=== PATIENT | female | born 2000 | race Hispanic/Latino ===

== ENCOUNTER 2018-03-17 01:46 | Emergency (ER) | payer OTHER, SELFPAY ==
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
[2018-03-17] MEDS: HALOPERIDOL 5 MG/ML VIAL IM (02:07)
[2018-03-17] MEDS: LORazepam 2 MG/ML SYRINGE IM (02:07)
[2018-03-17] MEDS: diphenhydrAMINE 50 MG/ML VIAL IM (02:07)
[2018-03-17 03:20] VITALS: BP 103/64; PULSE 109; RESP 16; TEMP 36.9; O2SAT 98
--- NOTE | 2018-03-17 03:35 | PC.NURSE ---
Pt now lying down on mattress. Pt rouseable, now responding apropriately. Pt cooperated with vital signs, pt was naked but was assisted into a hospital gown. Pt asked apropriate questions, What happened? Is Karan ok? Is my mom ok? Pt reassurred. Pt C/O cold and given warm blankets. Door left open/ seclusion DC'd. Dr Monae notified of above.
--- NOTE | 2018-03-17 07:52 | PC.NURSE ---
Pt is know to staff and it is asked if pt wanted family called to come get her. She states Yes
--- NOTE | 2018-03-17 08:25 | PC.NURSE ---
Late entry: Pt has been 1:1 observation since arrival
--- NOTE | 2018-03-17 08:27 | PC.NURSE ---
Per Dr Mayorga, doesnt need violent restraints renewed as cooperative with care
--- NOTE | 2018-03-17 09:01 | PC.NURSE ---
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
[2018-03-17 09:46] VITALS: BP 104/69; PULSE 103; RESP 20; O2SAT 98
== END 2018-03-17 09:47 | disposition home or self-care (01) ==
PROVIDERS: Emergency Provider Emergency Medicine; Family Provider Family Medicine; PCP Family Medicine
DX: R41.82 Altered mental status, unspecified (principal); F19.90 Other psychoactive substance use, unspecified, uncomplicated
CPT/HCPCS: 96372; 99283; J1200; J1630; J2060

== ENCOUNTER → 2018-06-07 16:06 | Outpatient (CLI) | payer OTHER, SELFPAY ==
[2018-06-07 20:09] LABS: Urine N gonorrhoeae NOT DETECTED
[2018-06-07 20:18] LABS: Urine Chlamydia NOT DETECTED
== END ==
PROVIDERS: Family Provider Family Medicine; PCP Obstetrics & Gynecology; Visit Provider Obstetrics & Gynecology
DX: Z11.3 Encounter for screening for infections with a predominantly sexual mode of transmission (principal); Z11.8 Encounter for screening for other infectious and parasitic diseases
CPT/HCPCS: 87491; 87591

== ENCOUNTER 2019-01-06 01:02 | Emergency (ER) | payer OTHER, SELFPAY ==
[2019-01-06 01:12] VITALS: BP 119/82; PULSE 76; RESP 16; TEMP 37; O2SAT 99; BMI 26.5
--- NOTE | 2019-01-06 01:18 | ED_ITS ---
HPI - Female Genitourinary General Chief complaint: Urogenital-Female Stated complaint: pain after intercourse, has IUD Time Seen by Provider: 01/06/19 01:12 Source: patient Mode of arrival: ambulatory Limitations: no limitations History of Present Illness HPI Narrative: Otherwise healthy 18-year-old female here for evaluation of lower abdominal cramping and pelvic pain after having intercourse earlier this faheem murillo. She states she had an IUD placed earlier this year. Has not had any problems since then. States she was on the Depo prior to that still has not had a menstrual cycle in ?some time ?states that after having intercourse started having lower abdominal pain. No urinary symptoms. No bowel changes. States symptoms have improved somewhat since then. She was concerned that they IUD could have been displaced. Related Data Home Medications Medication Instructions Recorded Confirmed [TYLENOL COLD AND COU] #0 09/07/06 Previous Rx's Medication Instructions Recorded citalopram 20 mg tablet 30 mg PO QDAY #45 tab 03/07/18 Allergies Allergy/AdvReac Type Severity Reaction Status Date / Time Penicillins [PENICILLINS] Allergy Unknown Verified 03/17/18 09:42 Review of Systems Constitutional Denies fever(s) Cardiovascular Denies chest pain and Denies dyspnea Respiratory Denies dyspnea Gastrointestinal Gastrointestinal: Reports abdominal pain, Denies change in stool character, Reports cramping, Denies nausea and Denies vomiting Genitourinary Denies dysuria and Reports pelvic pain Musculoskeletal Denies myalgias and Denies arthralgias Integumentary/Breasts Denies rash Neurologic Denies behavioral changes Psychiatric Denies behavioral changes Hematologic/Lymphatic Denies easy bleeding and Denies easy bruising Allergic/Immunologic Denies urticaria [facility] Medical History Patient denies medical problems (Acute) Social History Smoking Status: Current some day smoker Social History Smoking Status: Current some day smoker Exam Initial Vital Signs Initial Vital Signs: Vital Signs Temperature 98.6 F 01/06/19 01:12 Pulse Rate 76 01/06/19 01:12 Respiratory Rate 16 01/06/19 01:12 Blood Pressure 119/82 01/06/19 01:12 Pulse Oximetry 99 01/06/19 01:12 Const General: cooperative, comfortable, well developed, well groomed and No acute distress Orientation: alert, awake and oriented x3 HENMT Head: normal to inspection and normocephalic Resp Effort & Inspection: normal respiratory effort Auscultation: clear to auscultation bilaterally Cardio Rate: regular rate Rhythm: regular rhythm Pulses: radial pulses present GI Inspection: non-distended Palpation: soft, No firm and tender Other: No cervical motion tenderness, IUD string seen protruding from the cervical os, no adnexal tenderness, nursing was at bedside for the exam Skin Lesions: no lesions Rashes: no rashes Neuro General: alert, awake and oriented x3 Extrem General: normal to inspection and capillary refill normal Psych Appearance: grossly normal and well kempt Course Vital Signs - 8 hr 01/06/19 01:12 01/06/19 01:44 Temperature 98.6 F Pulse Rate 76 73 Respiratory Rate 16 16 Blood Pressure 119/82 Blood Pressure [Left Arm] 105/73 Pulse Oximetry 99 98 MDM - Female Genitourinary Lab Data Point of Care Testing Test Results Negative MDM Narrative Medical decision making narrative: Benign abdominal exam, IUD strings seen coming from the cervical os, doubt the IUD is been displaced, test negative, will hold on further workup for now, patient was given return precautions and follow-up instructions. She expressed understanding and agreement with plan Discharge Plan Departure Patient Disposition: Home Clinical Impression: Abdominal pain Qualifiers: Abdominal location: lower abdomen, unspecified Qualified Code(s): R10.30 - Lower abdominal pain, unspecified Discharge Date/Time: 01/06/19 01:51 Interventions: ED Discharge Assessment Last Done: 01/06/19 01:51 Instructions: Acute Abdominal Pain Activity Restrictions/Additional Instructions: The IUD strings were visualized today it seems to be in the correct location. Recommend you take Tylenol or ibuprofen for any discomfort. Return to the emergency department for any new or worsening symptoms. Contact your primary doctor for follow-up. Prescriptions: No Action [TYLENOL COLD AND COU] Qty: 0 RF: 0 citalopram [Celexa] 20 mg tablet 30 mg PO QDAY Qty: 45 RF: 2 Referrals: Lisset Petit MD [Primary Care Provider] -
[2019-01-06 01:44] VITALS: BP 105/73; PULSE 73; RESP 16; O2SAT 98
--- NOTE | 2019-01-06 01:44 | PC.NURSE ---
Stand-by assist for pelvic exam. Pt tolerated well.
== END 2019-01-06 01:51 | disposition home or self-care (01) ==
PROVIDERS: Emergency Provider Emergency Medicine; Family Provider Family Medicine; PCP Obstetrics & Gynecology
DX: R10.30 Lower abdominal pain, unspecified (principal)
CPT/HCPCS: 81025; 99282; 99283

== ENCOUNTER 2019-06-23 19:09 | Emergency (ER) | payer OTHER, SELFPAY ==
[2019-06-23 19:11] VITALS: BP 142/93; PULSE 91; RESP 18; TEMP 36.6; O2SAT 100
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
[2019-06-23 19:38] LABS: Add Manual Diff / Slide Review NO; Basophils Absolute Auto 0 /uL (0-100); Basophils Percent Auto 0.3 % (0-2); Eosinophils Absolute Auto 0 /uL (0-450); Eosinophils Percent Auto 0.5 % (2-4); Hematocrit 45.4 % (36-46); Hemoglobin 15.8 g/dL (12.0-16.0); Lymphocytes Absolute Auto 1200 /uL (1100-4500); Lymphocytes Percent Auto 13.6 % (25-40); Mean Corpuscular HGB Conc 34.8 % (30-36); Mean Corpuscular Hemoglobin 30.2 PG (26-34); Mean Corpuscular Volume 86.9 fL (80-100); Monocytes Absolute Auto 800 /uL (0-900); Monocytes Percent Auto 9.1 % (3-14); Neutrophils Absolute Auto 6800 /uL (1500-7000); Neutrophils Percent Auto 76.5 % (50-75); Platelet Count 399 X10^3/uL (150-400); Red Blood Cell Count 5.22 X10^6/uL (4.0-5.2); Red Cell Distribution Width 14.1 % (11.6-14.8); White Blood Cell Count 8.9 X10^3/uL (4.5-11.0)
[2019-06-23 19:55] LABS: Acetaminophen < 10 ug/mL (10-30); Alanine Aminotransferase 18 IU/L (<35); Albumin Globulin Ratio 1.3 (1.0-2.8); Alkaline Phosphatase 98 U/L (38-126); Aspartate Aminotransferase 24 IU/L (14-36); BUN Creatinine Ratio 6.7 (6-22); Bilirubin Total 0.7 mg/dL (0.2-1.3); Blood Urea Nitrogen 4 mg/dL (7-17); Calcium 9.6 mg/dL (8.4-10.2); Carbon Dioxide 25 mmol/L (22-32); Chloride 101 mmol/L (98-107); Estimated Glomerular Filt Rate > 60.0 mL/min (>60); Ethanol (ETOH) < 10 mg/dL; Globulin 3.9 g/dL (1.7-4.1); Glucose 102 mg/dL (70-100); HEMOLYSIS < 15 (0-50); Potassium 3.2 mmol/L (3.4-5.1); Salicylate < 1.0 mg/dL (<20); Sodium 138 mmol/L (137-145); Total Protein 8.9 g/dL (6.3-8.2)
[2019-06-23 20:36] LABS: Thyroid Stimulating Hormone 1.58 uIU/mL (0.47-4.68)
[2019-06-23 21:04] LABS: UR Morphine/Opiate cutoff 300 Negative (Negative); Ur Creatinine Normal (Normal); Ur Specific Gravity Normal (Normal); Urine Amphetamines Negative (Negative); Urine Barbiturates Negative (Negative); Urine Benzodiazepines Negative (Negative); Urine Cocaine Negative (Negative); Urine MDMA Negative (Negative); Urine Methadone Negative (Negative); Urine Methamphetamines Negative (Negative); Urine Oxycodone Negative (Negative); Urine Phencyclidine Negative (Negative); Urine Tetrahydrocannabinol Positive (Negative); Urine Tricyclic Antidepressant Negative (Negative); Urine pH Normal (Normal)
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
[2019-06-23 21:06] LABS: Bacteria Urine None Seen; RBC Urine None Seen (0-5/HPF); WBC Urine None Seen (0-5/HPF)
[2019-06-23 21:22] LABS: Culture Indicated Urine Cult Not Indicated; Squamous Epithelial Cell Urine 0-1 /HPF (0-5/HPF)
[2019-06-23 21:52] VITALS: BP 133/88; PULSE 82; RESP 14; TEMP 36.5; O2SAT 98
== END 2019-06-23 21:56 | disposition home or self-care (01) ==
PROVIDERS: Emergency Provider Emergency Medicine; PCP Nurse Practitioner Family
DX: R41.0 Disorientation, unspecified (principal); F12.929 Cannabis use, unspecified with intoxication, unspecified
CPT/HCPCS: 36415; 80053; 80305; 80320; 80329; 81003; 81015; 81025; 84443; 85025; 99282; 99283; G0480

== ENCOUNTER 2020-04-17 11:40 | Emergency (ER) | payer OTHER, SELFPAY ==
[2020-04-17 11:45] VITALS: BP 142/76; PULSE 88; RESP 16; TEMP 37.1; O2SAT 95; BMI 25.7
--- NOTE | 2020-04-17 12:41 | DI.RAD.S_ITS ---
PROCEDURE: XR FINGER RT MIN 2V INDICATIONS: injury with kniferight 5th digit TECHNIQUE: AP hand, 2 views of the 5th finger(s) acquired. COMPARISON: None. FINDINGS: Bones: No fractures or dislocations. No suspicious bony lesions. Soft tissues: No suspicious soft tissue calcifications. No radiopaque foreign bodies are seen. IMPRESSION: No acute bony abnormality is seen. No radiopaque foreign bodies are seen. Dictated by: Hugh Grande M.D. on 04/17/2020 at 12:11 Approved by: Hugh Grande M.D. on 04/17/2020 at 12:11
[2020-04-17] MEDS: TET,DIPH,PERTUSS(ACELL),VAC/PF 0.5 ML SYRINGE IM (12:52)
[2020-04-17] MEDS: TRAMADOL 50 MG TABLET PO (12:53)
[2020-04-17 14:40] VITALS: BP 119/76; PULSE 69; RESP 20; O2SAT 99
--- NOTE | 2020-04-17 19:08 | ED_ITS ---
HPI - Wound/Laceration <SASKIA Ventura - Last Filed: 04/17/20 19:15> General Chief Complaint: Wound/Laceration Stated Complaint: Cut On Pinky at Work Time Seen by Provider: 04/17/20 12:16 Source: patient Mode of arrival: Ambulatory Limitations: no limitations History of Present Illness HPI narrative: The patient is a 19-year-old female current smoker who denies pertinent medical history presents with a chief complaint of a cut to her right 5th digit. She states she was slicing food with mandoline [employer] and accidentally sliced off the tip of her right 5th digit. She does not know when her last tetanus was. Full range of motion noted. She states that is bleeding a lot. Related Data Home Medications Medication Instructions Recorded Confirmed [TYLENOL COLD AND COU] #0 09/07/06 Previous Rx's Medication Instructions Recorded citalopram 20 mg tablet 30 mg PO QDAY #45 tab 03/07/18 Allergies Allergy/AdvReac Type Severity Reaction Status Date / Time Penicillins [PENICILLINS] Allergy Unknown Verified 04/19/20 09:42 Review of Systems <SASKIA Ventura - Last Filed: 04/17/20 19:15> Review of Systems Narrative: GENERAL: Denies chills, fatigue, malaise, fever, sweats. HEENT: Denies sinus pain, ear pain, sore throat, difficulty swallowing, dizziness. RESPIRATORY: Denies dyspnea, cough, wheezing, hemoptysis, sputum. CARDIOVASCULAR: Denies chest pain, palpitations, orthopnea, edema, GASTROINTESTINAL: Denies nausea, vomiting, abdominal pain, diarrhea, constipation, melena. : Denies dysuria, frequency, incontinence, hematuria, urinary retention. MUSCULOSKELETAL: See HPI SKIN: See HPI NEUROLOGIC: Denies weakness, headache, numbness, change in speech, confusion, seizures, incoordination. PSYCHIATRIC: No concerning psychosocial issues. 12 point review of systems is negative except for those stated above Patient History <SASKIA Ventura - Last Filed: 04/17/20 19:15> Medical History Depression (Acute) Social History (System 04/19/20 @ 09:42 by Rosaura Ralph) Smoking Status: Current some day smoker Smoking Status: Current some day smoker alcohol intake frequency: holidays/special occasions only Substance Use Type: former substance user and marijuana Exam <SASKIA Ventura - Last Filed: 04/17/20 19:15> Narrative Exam Narrative: GENERAL: This is a well-nourished, well-developed patient, in appears anxious HEAD: Atraumatic. Normocephalic. No temporal or scalp tenderness. EYES: Pupils equal round and reactive. Extraocular motions intact. No scleral icterus. No injection or drainage. ENT: Nose without bleeding, purulent drainage or septal hematoma. Wearing a mask. Airway patent. NECK: Trachea midline. No JVD or lymphadenopathy. Supple, nontender, no meningeal signs. CARDIOVASCULAR: Regular rate and rhythm RESPIRATORY: No cough. No increased respiratory effort. No accessory muscle use EXTREMITIES: Avulsion to the tip of the right 5th digit, lb 0.25 x 0.5 cm. Through dermis. No bone visible. Oozing blood. Able to fully flex and extend right 5th digit against resistance. NEURO: AOx3. Interactive. SKIN: See extremity exam Initial Vital Signs Initial Vital Signs: Vital Signs Temperature 98.7 F 04/17/20 11:45 Pulse Rate 88 04/17/20 11:45 Respiratory Rate 16 04/17/20 11:45 Blood Pressure 142/76 H 04/17/20 11:45 Pulse Oximetry 95 04/17/20 11:45 <Mirella Mayorga DO - Last Filed: 04/22/20 09:44> Initial Vital Signs Initial Vital Signs: Vital Signs Temperature 98.7 F 04/17/20 11:45 Pulse Rate 88 04/17/20 11:45 Respiratory Rate 16 04/17/20 11:45 Blood Pressure 142/76 H 04/17/20 11:45 Pulse Oximetry 95 04/17/20 11:45 Scores <SASKIA Ventura - Last Filed: 04/17/20 19:15> GCS [place] coma scale eye opening: Spontaneous [place] coma scale verbal response: Orientated Sontag coma scale motor response: Obey commands [place] coma scale total score: 15 Course <SASKIA Ventura - Last Filed: 04/17/20 19:15> Orders Ordered: Discontinued Medications Diphtheria/Tetanus/Acell Pertussis (Adacel) 0.5 ml IM .ONCE ONE Stop: 04/17/20 12:42 Last Admin: 04/17/20 12:52 Dose: 0.5 ml Documented by: ZACHARY Tramadol HCl (Ultram) 50 mg PO NOW ONE Stop: 04/17/20 12:42 Last Admin: 04/17/20 12:53 Dose: 50 mg Documented by: ZACHARY Vital Signs Vital signs: Vital Signs - 8 hr 04/17/20 11:45 04/17/20 14:40 Temperature 98.7 F Pulse Rate 88 69 Respiratory Rate 16 20 Blood Pressure 142/76 H 119/76 Pulse Oximetry 95 99 <Mirella Mayorga DO - Last Filed: 04/22/20 09:44> Orders Ordered: Discontinued Medications Diphtheria/Tetanus/Acell Pertussis (Adacel) 0.5 ml IM .ONCE ONE Stop: 04/17/20 12:42 Last Admin: 04/17/20 12:52 Dose: 0.5 ml Documented by: NovaZOUTIS Tramadol HCl (Ultram) 50 mg PO NOW ONE Stop: 04/17/20 12:42 Last Admin: 04/17/20 12:53 Dose: 50 mg Documented by: ZACHARY Vital Signs Vital signs: Vital Signs - 8 hr 04/17/20 11:45 04/17/20 14:40 Temperature 98.7 F Pulse Rate 88 69 Respiratory Rate 16 20 Blood Pressure 142/76 H 119/76 Pulse Oximetry 95 99 MDM - Wound/Laceration <SASKIA Ventura - Last Filed: 04/17/20 19:15> Differential Diagnosis Differential diagnosis: Likely laceration Imaging Data Extremity x-ray #1: Radiologist's Impression: [address] [place] [id number] XRay Report Signed Patient: Jamila Asher [facility]#: [id number] : 2000Acct:[id number] Age/Sex: 19 / FDate of Service: 04/17/20 Loc: ED Accession Number: [id number] Procedure: XR finger RT min 2V Ordering Provider: Mirella Du PROCEDURE: XR FINGER RT MIN 2V INDICATIONS: injury with kniferight 5th digit TECHNIQUE: AP hand, 2 views of the 5th finger(s) acquired. COMPARISON: None. FINDINGS: Bones: No fractures or dislocations. No suspicious bony lesions. Soft tissues: No suspicious soft tissue calcifications. No radiopaque foreign bodies are seen. IMPRESSION: No acute bony abnormality is seen. No radiopaque foreign bodies are seen. Dictated by: Hugh Grande M.D. on 04/17/2020 at 12:11 Approved by: Hugh Grande M.D. on 04/17/2020 at 12:11 [facility] Narrative Medical decision making narrative: The patient is a 19-year-old female who presents with a chief complaint of an avulsion laceration to her right 5th digit. X-ray is no acute findings. Tetanus was updated. Dressing and wound care is provided by nursing with Surgicel. Hemostasis was easily achieved. I discussed at length follow up with primary care provider, monitoring for signs and symptoms of infection. Work note given to keep wound clean and dry for 1 week. Patient has no questions or concerns upon discharge and states understanding of return precautions as well as follow-up care. Discharge Plan Departure Patient Disposition: Home Clinical Impression: Avulsion of finger tip Qualifiers: Encounter type: initial encounter Qualified Code(s): S61.209A - Unspecified open wound of unspecified finger without damage to nail, initial encounter Discharge Date/Time: 04/17/20 14:42 Instructions: How to Care for a Laceration After Repair, DI for Avulsion Laceration (Not Requiring Sutures) Activity Restrictions/Additional Instructions: Thank you for trusting us with your care today. As discussed, please follow-up with primary care provider. Please monitor your wound for signs and symptoms of infection such as extending redness, purulent drainage etcetera Please come back to the emergency department for any acute concerns Today we updated your tetanus. Please use [id number] medications as needed and able for pain. Prescriptions: No Action [TYLENOL COLD AND COU] Qty: 0 RF: 0 citalopram [Celexa] 20 mg tablet 30 mg PO QDAY Qty: 45 RF: 2 Referrals: [facility] [Outside] Sharmin Duran ARNP [Primary Care Provider] - Stand Alone Forms: Work Release Note
== END 2020-04-17 14:42 | disposition home or self-care (01) ==
PROVIDERS: Emergency Provider Nurse Practitioner Family; PCP Nurse Practitioner Family
DX: S61.209A Unspecified open wound of unspecified finger without damage to nail, initial encounter (principal); Z23 Encounter for immunization
CPT/HCPCS: 73140; 90471; 99283; 99284; 90715

== ENCOUNTER → 2020-04-21 16:33 | Outpatient (CLI) | payer OTHER, SELFPAY ==
[2020-04-21 18:01] LABS: Add Manual Diff / Slide Review NO; Basophils Absolute Auto 100 /uL (0-100); Basophils Percent Auto 0.5 % (0-2); Eosinophils Absolute Auto 800 /uL (0-450); Eosinophils Percent Auto 7.1 % (2-4); Hematocrit 39.8 % (36-46); Hemoglobin 13.1 g/dL (12.0-16.0); Lymphocytes Absolute Auto 1600 /uL (1100-4500); Lymphocytes Percent Auto 14.2 % (25-40); Mean Corpuscular HGB Conc 32.9 % (30-36); Mean Corpuscular Hemoglobin 29.1 PG (26-34); Mean Corpuscular Volume 88.5 fL (80-100); Monocytes Absolute Auto 800 /uL (0-900); Monocytes Percent Auto 7.1 % (3-14); Neutrophils Absolute Auto 8100 /uL (1500-7000); Neutrophils Percent Auto 71.1 % (50-75); Platelet Count 347 X10^3/uL (150-400); Red Cell Distribution Width 13.1 % (11.6-14.8); White Blood Cell Count 11.3 X10^3/uL (4.5-11.0)
[2020-04-21 18:09] LABS: Lithium 0.6 mmol/L (0.6-1.2)
[2020-04-21 18:12] LABS: Alanine Aminotransferase 33 IU/L (<35); Albumin 4.2 g/dL (3.5-5.0); Albumin Globulin Ratio 1.1 (1.0-2.8); Alkaline Phosphatase 70 U/L (38-126); Aspartate Aminotransferase 28 IU/L (14-36); BUN Creatinine Ratio 10.4 (6-22); Bilirubin Total 0.3 mg/dL (0.2-1.3); Blood Urea Nitrogen 7 mg/dL (7-17); Carbon Dioxide 29 mmol/L (22-32); Chloride 104 mmol/L (98-107); Estimated Glomerular Filt Rate > 60.0 mL/min (>60); Globulin 3.7 g/dL (1.7-4.1); Glucose 82 mg/dL (70-100); HEMOLYSIS < 15 (0-50); Potassium 3.8 mmol/L (3.4-5.1); Sodium 137 mmol/L (137-145); Total Protein 7.9 g/dL (6.3-8.2)
[2020-04-21 18:46] LABS: Thyroid Stimulating Hormone 2.09 uIU/mL (0.47-4.68)
== END ==
PROVIDERS: PCP Nurse Practitioner Family; Referring Provider Psychiatry & Neurology Psychiatry; Visit Provider Psychiatry & Neurology Psychiatry
DX: F31.2 Bipolar disorder, current episode manic severe with psychotic features (principal); F41.9 Anxiety disorder, unspecified; G47.00 Insomnia, unspecified
CPT/HCPCS: 36415; 80053; 80178; 84443; 85025

== ENCOUNTER → 2020-08-20 10:14 | Outpatient (CLI) | payer OTHER, SELFPAY ==
[2020-08-20 11:26] LABS: BUN Creatinine Ratio 15.8 (6-22); Blood Urea Nitrogen 12 mg/dL (7-17); Calcium 9.6 mg/dL (8.4-10.2); Carbon Dioxide 27 mmol/L (22-32); Chloride 102 mmol/L (98-107); Estimated Glomerular Filt Rate > 60.0 mL/min (>60); Glucose 88 mg/dL (70-100); HEMOLYSIS < 15 (0-50); Potassium 3.7 mmol/L (3.4-5.1); Sodium 137 mmol/L (137-145)
[2020-08-20 12:29] LABS: Lithium 0.7 mmol/L (0.6-1.2)
[2020-08-20 13:07] LABS: Thyroid Stimulating Hormone 2.41 uIU/mL (0.47-4.68)
== END ==
PROVIDERS: PCP Nurse Practitioner Family; Referring Provider Nurse Practitioner Family; Visit Provider Nurse Practitioner Family
DX: F31.10 Bipolar disorder, current episode manic without psychotic features, unspecified (principal); Z51.81 Encounter for therapeutic drug level monitoring; E09.9 Drug or chemical induced diabetes mellitus without complications; F41.9 Anxiety disorder, unspecified; R51.9 Headache, unspecified
CPT/HCPCS: 36415; 80048; 80178; 84443

== ENCOUNTER → 2020-10-22 15:11 | Outpatient (CLI) | payer OTHER, SELFPAY ==
[2020-10-22] MEDS: COVID-19 VACC #1, MRNA(MOD) 100 MCG/0.5 ML VIAL IM (15:16)
== END ==
PROVIDERS: PCP Nurse Practitioner Family; Visit Provider Internal Medicine
DX: Z23 Encounter for immunization (principal)
CPT/HCPCS: 0011A; 91301

== ENCOUNTER → 2020-11-19 14:57 | Outpatient (CLI) | payer OTHER, SELFPAY ==
[2020-11-19] MEDS: COVID-19 VACC #2, MRNA(MOD) 100 MCG/0.5 ML VIAL IM (15:04)
== END ==
PROVIDERS: PCP Nurse Practitioner Family; Visit Provider Internal Medicine
DX: Z23 Encounter for immunization (principal)
CPT/HCPCS: 0012A; 91301

== ENCOUNTER → 2021-04-07 11:02 | Outpatient (CLI) | payer OTHER, SELFPAY ==
[2021-04-07 12:18] LABS: Add Manual Diff / Slide Review NO; Basophils Absolute Auto 0 /uL (0-100); Basophils Percent Auto 0.7 % (0-2); Eosinophils Absolute Auto 200 /uL (0-450); Eosinophils Percent Auto 2.3 % (2-4); Hematocrit 41.9 % (36-46); Hemoglobin 13.7 g/dL (12.0-16.0); Lymphocytes Absolute Auto 1400 /uL (1100-4500); Mean Corpuscular HGB Conc 32.8 % (30-36); Mean Corpuscular Hemoglobin 28.8 PG (26-34); Monocytes Absolute Auto 600 /uL (0-900); Monocytes Percent Auto 8.6 % (3-14); Neutrophils Absolute Auto 4600 /uL (1500-7000); Neutrophils Percent Auto 67.4 % (50-75); Platelet Count 351 X10^3/uL (150-400); Red Blood Cell Count 4.76 X10^6/uL (4.0-5.2); Red Cell Distribution Width 13.6 % (11.6-14.8); White Blood Cell Count 6.8 X10^3/uL (4.5-11.0)
[2021-04-07 12:43] LABS: Alanine Aminotransferase 17 IU/L (<35); Albumin 4.5 g/dL (3.5-5.0); Albumin Globulin Ratio 1.4 (1.0-2.8); Alkaline Phosphatase 76 U/L (38-126); Aspartate Aminotransferase 24 IU/L (14-36); BUN Creatinine Ratio 11.1 (6-22); Bilirubin Total 0.4 mg/dL (0.2-1.3); Blood Urea Nitrogen 6 mg/dL (7-17); Calcium 9.6 mg/dL (8.4-10.2); Carbon Dioxide 24 mmol/L (22-32); Chloride 108 mmol/L (98-107); Cholesterol 169 mg/dL (140-199); Estimated Glomerular Filt Rate > 60.0 mL/min (>60); Globulin 3.3 g/dL (1.7-4.1); Glucose 88 mg/dL (70-100); HDL Cholesterol 56 mg/dL (40-60); HEMOLYSIS < 15 (0-50); LDL Cholesterol Calculated 90 mg/dL (<100); Potassium 4.6 mmol/L (3.4-5.1); Sodium 139 mmol/L (137-145); Total Protein 7.8 g/dL (6.3-8.2); Triglycerides 114 mg/dL (35-150)
[2021-04-07 12:44] LABS: Lithium 0.5 mmol/L (0.6-1.2)
[2021-04-07 13:13] LABS: Thyroid Stimulating Hormone 2.55 uIU/mL (0.47-4.68)
== END ==
PROVIDERS: PCP Student in an Organized Health Care Education/Training Program; Referring Provider Psychiatry & Neurology Psychiatry; Visit Provider Psychiatry & Neurology Psychiatry
DX: F31.2 Bipolar disorder, current episode manic severe with psychotic features (principal); F63.3 Trichotillomania; F41.9 Anxiety disorder, unspecified; G47.00 Insomnia, unspecified; F12.20 Cannabis dependence, uncomplicated
CPT/HCPCS: 36415; 80053; 80061; 80178; 84443; 85025

== ENCOUNTER → 2021-12-21 09:17 | Outpatient (CLI) | payer SELFPAY ==
[2021-12-21 09:51] LABS: Hematocrit 39.1 % (36-46); Hemoglobin 13.3 g/dL (12.0-16.0); Mean Corpuscular Hemoglobin 29.9 PG (26-34); Mean Corpuscular Volume 87.9 fL (80-100); Platelet Count 380 X10^3/uL (150-400); Red Blood Cell Count 4.44 X10^6/uL (4.0-5.2); Red Cell Distribution Width 13.3 % (11.6-14.8)
[2021-12-21 10:16] LABS: Alanine Aminotransferase 25 IU/L (<35); Albumin 4.8 g/dL (3.5-5.0); Albumin Globulin Ratio 1.5 (1.0-2.8); Alkaline Phosphatase 76 U/L (38-126); Aspartate Aminotransferase 27 IU/L (14-36); BUN Creatinine Ratio 11.1 (6-22); Bilirubin Total 0.4 mg/dL (0.2-1.3); Blood Urea Nitrogen 8 mg/dL (7-17); Calcium 9.3 mg/dL (8.4-10.2); Carbon Dioxide 26 mmol/L (22-32); Chloride 105 mmol/L (98-107); Cholesterol 172 mg/dL (140-199); Estimated Glomerular Filt Rate > 60 mL/min (>60); Globulin 3.1 g/dL (1.7-4.1); Glucose 102 mg/dL (70-100); HDL Cholesterol 48 mg/dL (40-60); HEMOLYSIS < 15 (0-50); LDL Cholesterol Calculated 107 mg/dL (<100); Potassium 3.9 mmol/L (3.4-5.1); Sodium 139 mmol/L (137-145); Total Protein 7.9 g/dL (6.3-8.2); Triglycerides 84 mg/dL (35-150)
[2021-12-21 10:17] LABS: Lithium 0.7 mmol/L (0.6-1.2)
[2021-12-21 10:45] LABS: Thyroid Stimulating Hormone 3.32 uIU/mL (0.47-4.68)
== END ==
PROVIDERS: PCP Student in an Organized Health Care Education/Training Program; Referring Provider Psychiatry & Neurology Psychiatry; Visit Provider Psychiatry & Neurology Psychiatry
DX: F31.9 Bipolar disorder, unspecified (principal); F41.9 Anxiety disorder, unspecified; F63.3 Trichotillomania; G47.00 Insomnia, unspecified
CPT/HCPCS: 36415; 80053; 80061; 80178; 84443; 85027

== ENCOUNTER → 2022-04-02 12:00 | Outpatient (CLI) | payer SELFPAY | PROVIDERS: PCP Student in an Organized Health Care Education/Training Program; Visit Provider Nurse Practitioner Critical Care Medicine | DX: L02.91 Cutaneous abscess, unspecified (principal) | CPT/HCPCS: 87070; 87075; 87077; 87147; 87186; 87205 ==

== ENCOUNTER → 2022-04-03 10:56 | Outpatient (CLI) | payer SELFPAY ==
[2022-04-03 12:54] LABS: Lithium 0.5 mmol/L (0.6-1.2)
== END ==
PROVIDERS: PCP Student in an Organized Health Care Education/Training Program; Referring Provider Psychiatry & Neurology Psychiatry; Visit Provider Psychiatry & Neurology Psychiatry
DX: F31.9 Bipolar disorder, unspecified (principal); F63.9 Impulse disorder, unspecified; G47.00 Insomnia, unspecified
CPT/HCPCS: 36415; 80178

== ENCOUNTER → 2022-07-25 12:23 | Outpatient (CLI) | payer SELFPAY ==
[2022-07-25 13:58] LABS: Lithium 0.8 mmol/L (0.6-1.2)
== END ==
PROVIDERS: PCP Student in an Organized Health Care Education/Training Program; Referring Provider Psychiatry & Neurology Psychiatry; Visit Provider Psychiatry & Neurology Psychiatry
DX: F31.9 Bipolar disorder, unspecified (principal); F63.3 Trichotillomania; F12.20 Cannabis dependence, uncomplicated; G47.00 Insomnia, unspecified; F41.9 Anxiety disorder, unspecified
CPT/HCPCS: 36415; 80178

== ENCOUNTER → 2022-12-06 10:08 | Outpatient (CLI) | payer SELFPAY ==
[2022-12-06 12:24] LABS: Add Manual Diff / Slide Review NO; Basophils Absolute Auto 0 /uL (0-100); Basophils Percent Auto 0.6 % (0-2); Eosinophils Absolute Auto 200 /uL (0-450); Eosinophils Percent Auto 3.4 % (2-4); Hemoglobin 13.1 g/dL (12.0-16.0); Lymphocytes Absolute Auto 1500 /uL (1100-4500); Lymphocytes Percent Auto 24.1 % (25-40); Mean Corpuscular HGB Conc 33.5 % (30-36); Mean Corpuscular Hemoglobin 29.9 PG (26-34); Mean Corpuscular Volume 89.1 fL (80-100); Monocytes Absolute Auto 500 /uL (0-900); Monocytes Percent Auto 8.1 % (3-14); Neutrophils Absolute Auto 3900 /uL (1500-7000); Neutrophils Percent Auto 63.8 % (50-75); Platelet Count 321 X10^3/uL (150-400); Red Blood Cell Count 4.37 X10^6/uL (4.0-5.2); Red Cell Distribution Width 13.2 % (11.6-14.8); White Blood Cell Count 6.2 X10^3/uL (4.5-11.0)
[2022-12-06 12:48] LABS: Lithium 1.1 mmol/L (0.6-1.2)
[2022-12-06 12:57] LABS: Alanine Aminotransferase 25 IU/L (<35); Albumin 4.1 g/dL (3.5-5.0); Albumin Globulin Ratio 1.1 (1.0-2.8); Alkaline Phosphatase 75 U/L (38-126); Aspartate Aminotransferase 35 IU/L (14-36); BUN Creatinine Ratio 16.4 (6-22); Bilirubin Total 0.5 mg/dL (0.2-1.3); Blood Urea Nitrogen 10 mg/dL (7-17); Calcium 9.2 mg/dL (8.4-10.2); Carbon Dioxide 24 mmol/L (22-32); Chloride 106 mmol/L (98-107); Cholesterol 216 mg/dL (140-199); Estimated Glomerular Filt Rate > 60 mL/min (>60); Globulin 3.6 g/dL (1.7-4.1); Glucose 95 mg/dL (70-100); HDL Cholesterol 43 mg/dL (40-60); HEMOLYSIS 18 (0-50); LDL Cholesterol Calculated 151 mg/dL (<100); Potassium 3.8 mmol/L (3.4-5.1); Sodium 137 mmol/L (137-145); Total Protein 7.7 g/dL (6.3-8.2); Triglycerides 110 mg/dL (35-150)
[2022-12-06 13:23] LABS: Thyroid Stimulating Hormone 4.24 uIU/mL (0.47-4.68)
== END ==
LOC: LAB 10:15
PROVIDERS: PCP Student in an Organized Health Care Education/Training Program; Referring Provider Psychiatry & Neurology Psychiatry; Visit Provider Psychiatry & Neurology Psychiatry
DX: Z79.899 Other long term (current) drug therapy (principal); F31.9 Bipolar disorder, unspecified; F12.20 Cannabis dependence, uncomplicated; F41.1 Generalized anxiety disorder; F63.3 Trichotillomania; G47.00 Insomnia, unspecified
CPT/HCPCS: 36415; 80053; 80061; 80178; 84443; 85025

== ENCOUNTER 2023-09-22 03:50 | Emergency (ER) | payer SELFPAY ==
[2023-09-22 03:58] VITALS: BP 148/73; PULSE 63; RESP 16; TEMP 36.2; O2SAT 100; BMI 26.5
--- NOTE | 2023-09-22 04:35 | ED.HA ---
HPI - Headache General Chief Complaint: Headache Stated Complaint: sob head pain Time Seen by Provider: 09/22/23 04:35 Mode of arrival: Ambulatory History of Present Illness HPI Narrative: Patient is a 22-year-old female history of bipolar eating today with migraine-like headache. She reports that she gets headache for the last 7 days. She has been unable to sleep. She also suffers from pretty severe anxiety. She was told that due to the medication she is on she can take Tylenol or ibuprofen. She denies any nausea vomiting no sensitivity to light. Tonight she just felt like her headache was worse. He got quite escalated and was worried. No numbness or tingling she is multiple complaints as well. She says chronic nasal drainage for the last couple of months she does not know what to do about it. She has no fever no neck pain no cough or shortness of breath. Related Data Home Medications Medication Instructions Recorded Confirmed [TYLENOL COLD AND COU] ##0 09/07/06 04/02/22 Previous Rx's Medication Instructions Recorded citalopram 20 mg tablet (Celexa) 30 mg (1.5 x 20 mg) PO QDAY #45 03/07/18 tabs mupirocin 2 % topical ointment 1 applic topical BID #15 grams 04/02/22 Allergies Allergy/AdvReac Type Severity Reaction Status Date / Time Penicillins [PENICILLINS] Allergy Unknown Verified 04/02/22 11:52 Patient History Medical History Cellulitis and abscess of buttock Depression Patient denies medical problems Social History Smoking Status: Current some day smoker Smoking Status: Current some day smoker tobacco type: vaping alcohol intake frequency: holidays/special occasions only Substance Use Type: former substance user and marijuana Exam Initial Vital Signs Initial Vital Signs: Vital Signs Temperature 97.1 F L 09/22/23 03:58 Pulse Rate 63 09/22/23 03:58 Respiratory Rate 16 09/22/23 03:58 Blood Pressure 148/73 H 09/22/23 03:58 Pulse Oximetry 100 09/22/23 03:58 Oxygen Delivery Method Room Air 09/22/23 03:58 GENERAL: Well-appearing, well-nourished and in no acute distress. HEENT: Head atraumatic,EOMI, pupils reactive, no meningeal signs CARDIOVASCULAR: Regular rate and rhythm without murmurs, rubs or gallops. RESPIRATORY: Breath sounds equal bilaterally, no wheezes rales or rhonchi. ABDOMEN: Soft, nontender. Normoactive bowel sounds all 4 quadrants. No guarding or rebound. EXTREMITIES: Normal range of motion, no clubbing or edema. Neurovascularly intact NEUROLOGICAL: Alert and oriented x4.Normal gait and speech. Cranial nerves II through XII grossly intact. SKIN: Warm, dry, no laceration, no petechiae, no rashes or lesions. Course Orders Ordered: Discontinued Medications Ketorolac Tromethamine (Ketorolac 30 Mg/Ml Vial) 30 mg IM NOW ONE Stop: 09/22/23 04:44 Last Admin: 09/22/23 04:53 Dose: 30 mg Documented By: KARLA Vital Signs Vital signs: Vital Signs - 8 hr 09/22/23 03:58 Temperature 97.1 F L Pulse Rate 63 Respiratory Rate 16 Blood Pressure 148/73 H Pulse Oximetry 100 Oxygen Delivery Method Room Air MDM - Headache Lab Data Labs: Point of Care Testing Test Results Negative Urine Dip Bedside Urine Glucose Negative Bedside Urine Bilirubin - Negative Bedside Urine Ketone - Negative Urine Specific [place] 1.005 Bedside Urine Occult Blood - Negative Bedside Urine pH 7 Bedside Urine Protein - Negative Bedside Urine Urobilinogen - Negative Bedside Urine Nitrite - Negative Bedside Urine Leukocytes - Negative Esterase [facility] Narrative Medical decision making narrative: Patient is a 22-year-old female history of bipolar presenting today with ongoing headache. She has no focal deficits no nausea or vomiting. She overall appears well. It sounds as though she got quite worked up she was not sure what medication she could take. She did get a shot of Toradol and overall is feeling better. She has no neurologic deficits no nausea or vomiting. She has not on anticoagulation. . At this time low suspicion for low intracranial hemorrhage and no need for imaging. Discharge Plan Departure Patient Disposition: Home Clinical Impression: Headache, migraine Instructions: DI for Migraine Activity Restrictions/Additional Instructions: *You have been diagnosed with migraine *What to do: At this time has a headache stops. You can take some ibuprofen if you need to for pain. *Continue to take medications as directed Ibuprofen 600 mg every 6 hours for [id number] *Follow up with your primary care provider in 2-3 days or call [phone] *Return to ER if you should have worsening headache shortness of breath or any new, worsening or concerning symptoms Prescriptions: No Action mupirocin 2 % ointment 1 applic topical BID Qty: 15 0RF [TYLENOL COLD AND COU] Qty: 0 citalopram [Celexa] 20 mg tablet 30 mg PO QDAY Qty: 45 2RF Referrals: Zeina Chan PA-C [Primary Care Provider] - Stand Alone Forms: Patient Portal/API
[2023-09-22] MEDS: KETOROLAC 30 MG/ML VIAL IM (04:53)
[2023-09-22 05:43] VITALS: BP 100/57; PULSE 56; RESP 16; TEMP 36.7; O2SAT 97
== END 2023-09-22 05:45 | disposition home or self-care (01) ==
PROVIDERS: Emergency Provider Emergency Medicine; PCP Student in an Organized Health Care Education/Training Program
DX: G43.909 Migraine, unspecified, not intractable, without status migrainosus (principal); F41.9 Anxiety disorder, unspecified
CPT/HCPCS: 81003; 81025; 96372; 99283; J1885

== ENCOUNTER → 2024-01-17 11:25 | Outpatient (CLI) | payer OTHER, MEDICAID, SELFPAY ==
[2024-01-17 12:58] LABS: Alanine Aminotransferase 19 IU/L (<35); Albumin 4.4 g/dL (3.5-5.0); Albumin Globulin Ratio 1.5 (1.0-2.8); Alkaline Phosphatase 95 U/L (38-126); Aspartate Aminotransferase 21 IU/L (14-36); BUN Creatinine Ratio 11.9 (6-22); Bilirubin Total 0.4 mg/dL (0.2-1.3); Blood Urea Nitrogen 8 mg/dL (7-17); Calcium 9.4 mg/dL (8.4-10.2); Carbon Dioxide 23 mmol/L (22-32); Chloride 107 mmol/L (98-107); Estimated Glomerular Filt Rate > 60 mL/min (>60); Glucose 169 mg/dL (70-100); HEMOLYSIS < 15 (0-50); Potassium 4.1 mmol/L (3.4-5.1); Sodium 139 mmol/L (137-145); Total Protein 7.4 g/dL (6.3-8.2)
[2024-01-17 13:01] LABS: Lithium 0.9 mmol/L (0.6-1.2)
[2024-01-17 13:26] LABS: Thyroid Stimulating Hormone 7.08 uIU/mL (0.47-4.68)
== END ==
PROVIDERS: PCP Nurse Practitioner Family; Referring Provider Nurse Practitioner Family; Visit Provider Nurse Practitioner Family
DX: F41.9 Anxiety disorder, unspecified (principal); F32.9 Major depressive disorder, single episode, unspecified; Z86.59 Personal history of other mental and behavioral disorders
CPT/HCPCS: 36415; 80053; 80178; 84443

== ENCOUNTER → 2024-02-26 12:57 | Outpatient (CLI) | payer OTHER, MEDICAID, SELFPAY ==
[2024-02-26 15:21] LABS: Thyroid Stimulating Hormone 2.34 uIU/mL (0.47-4.68)
== END ==
PROVIDERS: PCP Nurse Practitioner Family; Referring Provider Nurse Practitioner Family; Visit Provider Nurse Practitioner Family
DX: E03.9 Hypothyroidism, unspecified (principal)
CPT/HCPCS: 36415; 84443

== ENCOUNTER 2024-07-27 05:00 | Emergency (ER) | payer SELFPAY ==
[2024-07-27 05:10] VITALS: BP 120/74; PULSE 100; RESP 20; TEMP 37.4; O2SAT 100; BMI 30.1
--- NOTE | 2024-07-27 05:43 | ED.MEDCLEAR ---
HPI - Medical Clearance General Chief complaint: Medical Clearance Stated complaint: Might have taken the wrong amt of meds Time Seen by Provider: 07/27/24 05:18 Source: patient Mode of arrival: Ambulatory History of Present Illness HPI Narrative: 23-year-old female with chart history of bipolar disorder, anxiety and depression, for which she takes quetiapine/Seroquel as well as lithium, concerned that she might have mixed up her dosage pills of quetiapine and lithium that she had taken 0400. She usually takes quetiapine 100 mg at night. She usually takes lithium 300 mg tablets, 3 tablets at night, 2 tablets in the morning. She is concerned that she mixed up her quetiapine and her lithium and might have taken 3 of the 100 mg dose quetiapine instead of the lithium. She felt a bit sleepy, no other side effects, feels more alert. No seizure activity. No problems urinating. Ambulatory. She was not trying to hurt herself. Related Information Home Medications Medication Instructions Recorded Confirmed prazosin 1 mg capsule 1 mg PO BEDTIME 10/24/23 04/17/24 quetiapine 100 mg tablet 100 mg PO DAILY 10/24/23 04/17/24 Previous Rx's Medication Instructions Recorded mupirocin 2 % topical ointment 1 applic topical BID #22 grams 10/24/23 loratadine 10 mg tablet (Claritin) 10 mg PO DAILY #90 tabs 01/16/24 tretinoin 0.1 % topical cream 1 applic topical BEDTIME #45 grams 04/17/24 levothyroxine 25 mcg capsule 25 mcg PO DAILY #90 caps 05/08/24 lithium carbonate 300 mg 600 mg (2 x 300 mg) PO .2 po am 3 05/14/24 tablet,extended release po pm #180 tabs hydroxyzine HCl 25 mg tablet 25 mg PO TID PRN anxiety #90 tabs 05/27/24 propranolol 10 mg tablet 10 mg PO DAILY #90 tabs 06/04/24 Allergies Allergy/AdvReac Type Severity Reaction Status Date / Time Penicillins [PENICILLINS] Allergy Unknown Verified 04/17/24 08:10 Patient History Medical History (Updated 07/27/24 @ 06:25 by Freddy Roberson MD) Alcohol abuse (~2014) History of bipolar disorder MRSA (methicillin resistant Staphylococcus aureus) Irritable bowel syndrome (~2015) Anxiety and depression Hypothyroidism (~2019) Nicotine dependence Seasonal allergies Cellulitis and abscess of buttock Depression Patient denies medical problems Social History Smoking Status: Current some day smoker Smoking Status: Current some day smoker tobacco type: vaping alcohol intake frequency: holidays/special occasions only Exam Narrative Exam Narrative: GENERAL: Well-developed patient, in mild distress. HEAD: Atraumatic. Normocephalic. EYES: Pupils equal round and reactive. Extraocular motions intact. No scleral icterus. No injection or drainage. ENT: Nose without bleeding, purulent drainage. Throat without erythema, tonsillar hypertrophy or exudate. Airway patent. NECK: Trachea midline. Non tender CARDIOVASCULAR: Regular rate and rhythm without murmurs, gallops, or rubs. RESPIRATORY: Clear to auscultation. Breath sounds equal bilaterally. No wheezes, rales, or rhonchi. GASTROINTESTINAL: Abdomen soft, non-tender, nondistended. EXTREMITIES: No edema or joint tenderness. BACK: Nontender without deformity or crepitance. No flank tenderness. NEURO: AOx3. Motor functions grossly nonfocal SKIN: No rash or erythema of visible areas Initial Vital Signs Initial Vital Signs: Vital Signs Temperature 99.3 F 07/27/24 05:10 Pulse Rate 100 H 07/27/24 05:10 Respiratory Rate 20 07/27/24 05:10 Blood Pressure 120/74 07/27/24 05:10 Pulse Oximetry 100 07/27/24 05:10 Oxygen Delivery Method Room Air 07/27/24 05:10 MDM - Medical Clearance MDM Narrative Medical decision making narrative: 23-year-old female with history of anxiety, depression, grabiel has had suspected accidental mixed up of her lithium and quetiapine medications. She might have taken 300 mg of quetiapine instead of 100 mg, mistaking the doses for her lithium medication. If so then the dose is still within therapeutic dosing range although would have been 3-fold increased to the patient. She felt somewhat sleepy, no seizure activity, no fevers, no muscle pain or rigidity, and now feels more alert. She was not trying to hurt herself. Significant other in the room with stated that he can watch her for the next 12 hours or so before he has to go to work. Quetiapine dose can be given much higher in therapeutic range, although if she did have triple her normal dose she might have had some symptoms, perhaps some somnolence might have been related to the increased dose, although was taken that for this morning so the time of day could have been a component as well. No toxic effects at this time. Advised to further observe at home with significant other through the day today. Encouraged patient to stop any further quetiapine and lithium doses for now. And to resume her regular medication regimen tomorrow Sunday. Return precautions discussed. Discharge Plan Departure Patient Disposition: Home Clinical Impression: Accidental overdose Activity Restrictions/Additional Instructions: Possible accidental overdose of quetiapine/Seroquel medication, this taking it for lithium medication. Usual quetiapine was 100 mg dose, might have taken 2 extra tablets for 300 mg dose about 2 hours prior to arrival. Some increased sleepiness although is really early in the morning. No seizure activity. No fevers. No rigidity your muscular problems. No heart palpitation like symptoms. Possible prior sedation but more alert now. Home observation with family for now advised. Consider holding your quetiapine and your lithium medications for the rest of the day since the dosage seemed to be somewhat unclear. Resume your regular regimen tomorrow Sunday. Follow up with your mental health provider as planned. Otherwise consider resuming your chronic medication regimen tomorrow. Return earlier if any change worsening symptoms or any concerns prior Prescriptions: No Action levothyroxine 25 mcg capsule 25 mcg PO DAILY Qty: 90 0RF lithium carbonate 300 mg tablet extended release 600 mg PO .2 po am 3 po pm Qty: 180 3RF Rx Instructions: Take 600mg in the morning, 900mg in the evening hydroxyzine HCl 25 mg tablet 25 mg PO TID PRN (Reason: anxiety) Qty: 90 0RF propranolol 10 mg tablet 10 mg PO DAILY Qty: 90 0RF tretinoin 0.1 % cream 1 applic topical BEDTIME Qty: 45 0RF quetiapine 100 mg tablet 100 mg PO DAILY prazosin 1 mg capsule 1 mg PO BEDTIME mupirocin 2 % ointment 1 applic topical BID Qty: 22 0RF loratadine [Claritin] 10 mg tablet 10 mg PO DAILY Qty: 90 3RF Referrals: Latoya Sheppard FNP-BC [Primary Care Provider] - Stand Alone Forms: Patient Portal/API/Survey
== END 2024-07-27 06:28 | disposition home or self-care (01) ==
PROVIDERS: Emergency Provider Emergency Medicine; PCP Nurse Practitioner Family
DX: T50.991A Poisoning by other drugs, medicaments and biological substances, accidental (unintentional), initial encounter (principal)
CPT/HCPCS: 99281

== ENCOUNTER → 2024-09-17 14:59 | Outpatient (CLI) | payer SELFPAY ==
[2024-09-17 16:38] LABS: Lithium 1.2 mmol/L (0.6-1.2)
[2024-09-17 17:11] LABS: TSH w/ Reflex to FT4 2.63 uIU/mL (0.47-4.68)
== END ==
LOC: LAB 15:00
PROVIDERS: PCP Nurse Practitioner Family; Referring Provider Nurse Practitioner Family; Visit Provider Nurse Practitioner Family
DX: E03.9 Hypothyroidism, unspecified (principal); Z86.59 Personal history of other mental and behavioral disorders; F41.9 Anxiety disorder, unspecified; F32.9 Major depressive disorder, single episode, unspecified
CPT/HCPCS: 36415; 80178; 84443

== ENCOUNTER → 2024-10-27 14:34 | Outpatient (CLI) | payer OTHER, SELFPAY ==
--- NOTE | 2024-10-27 14:35 | DI.RAD.S_ITS ---
PROCEDURE: XR SOFT TISSUE NECK INDICATIONS: lump on upper neck /lower jaw TECHNIQUE: 2 views of the neck were acquired. COMPARISON: None. FINDINGS: Airway: The airway appears patent. Soft tissues: Prevertebral soft tissues are normal in thickness. The epiglottis and aryepiglottic folds appear normal. No soft tissue gas. Bones: No suspicious bony lesions. Visualized cervical spine is normally aligned. IMPRESSION: No gross soft tissue mass or abnormal soft tissue calcifications. Airway is patent. If indicated, CT of neck soft tissue can be done for further evaluation. Dictated by: Jason Burton M.D. on 10/27/2024 at 20:47 Approved by: Jason Burton M.D. on 10/27/2024 at 20:49
== END ==
PROVIDERS: PCP Nurse Practitioner Family; Referring Provider Nurse Practitioner Family; Visit Provider Nurse Practitioner Family
DX: R22.1 Localized swelling, mass and lump, neck (principal)
CPT/HCPCS: 70360

== ENCOUNTER → 2024-11-10 13:10 | Outpatient (CLI) | payer OTHER, SELFPAY ==
--- NOTE | 2024-11-10 13:12 | DI.CT.S_ITS ---
PROCEDURE: CT ANGIO HEAD INDICATIONS: New onset Migraines TECHNIQUE: Precontrast 4.5 mm thick angled axial sections acquired from the foramen magnum to the vertex. After the administration of intravenous contrast, 1 mm thick sections acquired through the [place]. Postcontrast 4.5 mm thick sections then re-acquired from the foramen magnum to the vertex. 10 mm thick etpynlf-[id number]-twgbfgncoj (MIP) reformats were acquired of the central intracranial vasculature. For radiation dose reduction, the following was used: automated exposure control, adjustment of mA and/or kV according to patient size. COMPARISON: None. FINDINGS: Image quality: Streak artifact can be seen through the skull base. Limited by bolus timing, with venous contamination. Anterior circulation: Intracranial internal carotid arteries are normal in size and flow. The flow within the paired anterior cerebral arteries is normal and symmetric. The flow within the middle cerebral arteries is normal and symmetric. The anterior communicating artery is not well seen. No aneurysms are seen. Posterior circulation: Visualized portions of the vertebral arteries demonstrate normal caliber, and join to form a normal appearing basilar artery. Flow within the posterior cerebral arteries is normal and symmetric. No aneurysms are seen. CSF spaces: Ventricles are normal in size and shape. Basal cisterns are patent. No extra-axial fluid collections. Brain: No midline shift. No intracranial bleeds or masses. [place]-white matter interface appears intact. Skull and face: Calvarium and facial bones appear intact, without suspicious lesions. Sinuses: Visualized sinuses and mastoids are clear. IMPRESSION: No significant intracranial arterial abnormality is seen. No aneurysm is seen. To the limits of CT, no masses are seen. Dictated by: Hugh Grande M.D. on 11/10/2024 at 17:26 Approved by: Hugh Grande M.D. on 11/10/2024 at 17:28
[2024-11-10 14:08] LABS: Estimated Glomerular Filt Rate > 60 mL/min (>60)
== END ==
LOC: CT 13:12
PROVIDERS: PCP Nurse Practitioner Family; Referring Provider Nurse Practitioner Family; Visit Provider Nurse Practitioner Family
DX: G43.909 Migraine, unspecified, not intractable, without status migrainosus (principal)
CPT/HCPCS: 36415; 70496; 82565; Q9967

== ENCOUNTER → 2025-01-29 12:00 | Outpatient (CLI) | payer SELFPAY ==
[2025-01-29 12:47] LABS: Hemoglobin A1C% w Est Avg Glu 5.0 % (4.0-6.0)
[2025-01-29 12:58] LABS: Lithium 1.2 mmol/L (0.6-1.2)
[2025-01-29 13:00] LABS: Cholesterol 168 mg/dL (140-199); HDL Cholesterol 60 mg/dL (40-60); Triglycerides 95 mg/dL (35-150)
== END ==
PROVIDERS: PCP Nurse Practitioner Family; Referring Provider Student in an Organized Health Care Education/Training Program; Visit Provider Student in an Organized Health Care Education/Training Program
DX: Z51.81 Encounter for therapeutic drug level monitoring (principal); Z79.899 Other long term (current) drug therapy
CPT/HCPCS: 80061; 80178; 83036

== ENCOUNTER → 2025-03-17 15:56 | Outpatient (CLI) | payer SELFPAY | PROVIDERS: PCP Nurse Practitioner Family; Visit Provider Chiropractor | DX: R30.0 Dysuria (principal) | CPT/HCPCS: 87077; 87086; 87186 ==